=== PATIENT | male | born 1990 | race Caucasian/White ===

== ENCOUNTER 2017-04-04 13:32 | Inpatient (IN) | payer BC, OTHER ==
[~2017-04-04] VITALS: Ht 186.7 cm; Wt 76.2 kg
--- NOTE | 2017-04-04 14:02 | NUR ---
PRE-ADMISSION NOTE RECEIVED PT AT INTAKE, A/OX4, RESPIRATIONS EVEN AND UNLABORED. PT IS FLUSHED, FIDGETY, RESTLESS AND HIGHLY AGITATED AND IRRITABLE. PT APPEARS DYSPHORIC, GUARDED AND WITHDRAWN. TREMORS ARE SEEN. PT DOES NOT HAVE EYE CONTACT WHEN SPEAKING. PT INITIAL VS WERE BP:132/83, HR:101, RR: 18, O2SAT: 95%. PT REPORTS HAVING SENSITIVITY TO LIGHT, NAUSEA, ANXIETY, AND WEAKNESS. PT STATES HE HAS NKDA, HE IS ALLERGIC TO CATS. PT REPORTS A MEDICAL HX OF DEPRESSION, ANXIETY, PTSD, AND INSOMNIA. PT REPORTS NO HX OF SZ. PT STATES HE DOES NOT HAVE ANY HOME MEDS. SUBSTANCE USE HX: 1.ETOH VODKA 3 PINTS (1410 ML) OF VODKA DAILY FOR 1 MONTH. LAST USED THE NIGHT BEFORE ON 04/03/17. FIRST USED WHEN HE WAS 10 Y/O. PT REPORTS BEING SOBER FOR 8 MONTHS BEFORE THIS RELAPSE. PT STATES IT WAS THE LONGEST PERIOD BEING SOBER. PT REPORTS HE HAS BEEN TO [place] TWICE. [facility] JULY 2016, [facility] NOVEMBER 2016.
[2017-04-04] MEDS ORDERED: LOPERAMIDE HCL 2 MG CAPSULE PO PRN ×2 (14:15)
[2017-04-04] MEDS ORDERED: THIAMINE HCL 200 MG/2 ML VIAL IM ONE (14:15)
[2017-04-04] MEDS ORDERED: LORAZEPAM 1 MG TABLET PO PRN ×2 (14:15)
[2017-04-04] MEDS ORDERED: MAG HYDROX/AL HYDROX/SIMETH 30 ML LIQUID UDC PO PRN (14:15)
[2017-04-04] MEDS ORDERED: ONDANSETRON ODT 4 MG TAB.RAPDIS SL PRN (14:15)
[2017-04-04] MEDS ORDERED: IBUPROFEN 400 MG TABLET PO PRN (14:15)
[2017-04-04] MEDS ORDERED: DICYCLOMINE HCL 20 MG TABLET PO PRN (14:15)
[2017-04-04] MEDS ORDERED: LORAZEPAM 2 MG/1 ML VIAL IM PRN (14:15)
[2017-04-04] MEDS ORDERED: ACETAMINOPHEN 325 MG TABLET PO PRN (14:15)
[2017-04-04] MEDS ORDERED: CLONIDINE HCL 0.1 MG TABLET PO PRN (14:15)
[2017-04-04] MEDS ORDERED: MIRALAX 17 GM POWD.PACK PO PRN (14:15)
[2017-04-04] MEDS ORDERED: ONDANSETRON 4 MG/2 ML VIAL IM PRN (14:15)
[2017-04-04] MEDS: LORAZEPAM 1 MG TABLET PO SCH ×3 (14:58→22:00)
[2017-04-04 15:01] LABS: *AMPHETAMINE, URINE NEGATIVE (NEGATIVE); *BARBITURATE, URINE NEGATIVE (NEGATIVE); *CANNABINOID, URINE NEGATIVE (NEGATIVE); *COCCAINE, URINE NEGATIVE (NEGATIVE); *OPIATE, URINE NEGATIVE (NEGATIVE); *PHENCYCLIDINE SCREEN,URINE NEGATIVE (NEGATIVE)
[2017-04-04 15:56] LABS: BASOPHILS % (AUTO) 0.4 % (0.0-2.0); EOSINOPHILS # (AUTO) 0.1 K/uL (0.0-0.7); EOSINOPHILS % (AUTO) 0.8 % (0.0-7.0); HEMATOCRIT 50.3 % (36.7-47.1); HEMOGLOBIN 17.3 g/dL (12.5-16.3); LYMPHOCYTES # (AUTO) 1.1 K/uL (20.0-40.0); LYMPHOCYTES % (AUTO) 15.8 % (20.5-51.5); MEAN CORPUSCULAR HEMOGLOBIN 32.9 uug (23.8-33.4); MEAN CORPUSCULAR HGB CONC 34 g/dL (32.5-36.3); MEAN CORPUSCULAR VOLUME 95.7 fL (73.0-96.2); MONOCYTES # (AUTO) 0.5 K/uL (2.0-10.0); NEUTROPHILS # (AUTO) 5.2 K/uL (1.8-8.9); PLATELET COUNT (AUTO) 214 K/uL (152-348); RED BLOOD CELL COUNT(AUTO) 5.25 MIL/uL (4.06-5.63); WHITE BLOOD COUNT (AUTO) 6.8 K/uL (3.6-10.2)
[2017-04-04 16:00] VITALS: BP 120/78
--- NOTE | 2017-04-04 16:00 | NUR ---
ADMISSION NOTE PT WAS ADMITTED ON THE FLOOR AT 1414 ON 04/04/17. PT IS A/OX4, RESPIRATIONS EVEN AND UNLABORED. PT IS LABILE, FLUSHED, DIAPHORETIC, FIDGETY, RESTLESS AND HIGHLY AGITATED AND IRRITABLE. PT APPEARS DYSPHORIC, GUARDED AND WITHDRAWN. PT HAS REDNESS IN THE EYES. TREMORS ARE SEEN. PT DOES NOT HAVE EYE CONTACT WHEN SPEAKING. PT INITIAL VS WERE BP:132/83, HR:101, RR: 18, O2SAT: 95%. PT REPORTS HAVING SENSITIVITY TO LIGHT, NAUSEA, ANXIETY, DIFFICULTY THINKING AND WEAKNESS. INITIAL CIWA 16. PT STATES HE HAS NKDA, HE IS ALLERGIC TO CATS. PT REPORTS A MEDICAL HX OF DEPRESSION, ANXIETY, PTSD, AND INSOMNIA. PT STATES HE WAS POSITIVE FOR HEP C EXPOSURE BUT IS NOT SURE IF HE IS POSITIVE. PT REPORTS NO HX OF SZ. PT STATES HE DOES NOT HAVE ANY HOME MEDS. BODY CHECK COMPLETED. PT HAS MULTIPLE BRUISES ON BILATERAL KNEES. SCABS ON BILATERAL HANDS. PT REPORTS HE DOES NOT KNOW HOW HE GOT THEM. PT REPORTS FAMILY HX OF ETOH ABUSE. PT STATES HE HAS NO SUPPORT SYSTEM AND IS WORKING ON GAINING IT. PT REPORTS HAVING ABANDONMENT AND ISOLATION ISSUE, VERBAL AND EMOTIONAL ABUSE. PT STATES HE HAS LOST ABOUT 10 LBS THE PAST MONTH DUE TO HIS DRINKING HABIT. PT REPORTS HE HAS BEEN DRINKING DUE TO HIGH STRESS FROM WORK HE RECENTLY QUIT AND THE BREAK UP WITH HIS GIRLFRIEND. PT WANTS TO BE ASKED LATER FOR FLU/PNA VACCINE CONSENT; PT STATES HE DOES NOT FEEL WELL ENOUGH TO THINK ABOUT IT AT THIS TIME. SUBSTANCE USE HX: 1.ETOH VODKA 3 PINTS (1410 ML) OF VODKA DAILY FOR 1 MONTH. LAST USED THE NIGHT BEFORE ON 04/03/17. FIRST USED WHEN HE WAS 10 Y/O. PT REPORTS BEING SOBER FOR 8 MONTHS BEFORE THIS RELAPSE. PT STATES IT WAS THE LONGEST PERIOD BEING SOBER. PT REPORTS HE HAS BEEN TO [place] TWICE. [facility] JULY 2016, [facility] NOVEMBER 2016.
[2017-04-04 16:06] LABS: BILIRUBIN,TOTAL 0.7 mg/dL (0.2-1.0); CREATININE 1.1 mg/dL (0.6-1.3); MAGNESIUM 1.7 mg/dL (1.8-2.4); POTASSIUM 3.6 mmol/L (3.5-5.1); TOTAL PROTEIN, SERUM 7.4 g/dL (6.4-8.2)
[2017-04-04] MEDS ORDERED: MAGNESIUM OXIDE 400 MG TABLET PO ONE (18:00)
--- NOTE | 2017-04-04 18:12 | NUR ---
PRN ATIVAN 2 MG PO PRN GIVEN FOR CIWA 16. PT APPEARS FLUSHED, HIGHLY ANXIOUS, AGITATED AND TREMORS ARE SEEN. WILL MONITOR FOR EFFECTIVENESS.
--- NOTE | 2017-04-04 18:59 | NUR ---
START OF SHIFT NOTE Patient is a 26 old male admitted to [facility] 04/04/17 at 19:42 for Alcohol (Vodka) dependence continue 5 Day Ativan Taper. Patient tolerated well without ASE. Patient reported Allergy to Cat dander. Patient placed on Full Code; Regular Diet; Fall and Seizures Precautions. Past Medical History: Anxiety, Depression, History of Seizures, PTSD, Hepatitis C. Upon endorsement, patient assessed in his room. Patient is alert and oriented x4. Speech is unclear and slurred. Patient is unshaved, and his clothes around the room. CIWA 16. Patient presented with anxiety, agitation, nervousness, tremors, sweating, muscle aches, generalized body pain "5/10", restlessness ,fatigue, and stomach pain. Patient denies nausea, vomiting, and diarrhea. Respirations is unlabored with alcohol smell. Abdomen is soft. Bowel Sounds active in all four quadrants. Skin is warm, and moist to touch. Patient has scabs on Bilateral Upper Extremities, and multiple bruises on Bilateral Low Extremities " unknown reason". Patient denies SI/HI. Patient encouraged to attend activities, and to increasing oral fluids. All safety measures in the place: Call light within reach; bed locked and in the lowest position, padded rails up x 2. Patient endorsed by day shift nurse. SBAR report received. Will continue to monitor closely.
--- NOTE | 2017-04-04 19:12 | NUR ---
REASSESSMENT PT CIWA 14 UPON REASSESSMENT. WILL CONTINUE TO MONITOR.
--- NOTE | 2017-04-04 19:59 | NUR ---
END OF SHIFT PT LAST CIWA 12 AT 1911. PT APPEARS RED AND FLUSHED, ANXIOUS, RESTLESS. TREMORS ARE SEEN. ATIVAN 2 MG PO PRN GIVEN AT 1811. UPON REASSESSMENT CIWA 12; PT STATED, "I STILL FEEL LIKE SHIT." WILL GIVE ALL ENDORSEMENT TO NECK BAND SETTER NURSE. Addendum: 04/04/17 at 2004 by JOYA BLANCHARD RN ENCOURAGED PT TO INCREASE FLUIDS TO PROMOTE HYDRATION. ENCOURAGED PT TO PARTICIPATE IN DIVERSIONAL ACTIVITIES TO ALLEVIATE ANXIETY.
[2017-04-04 20:00] VITALS: BP 137/69
--- NOTE | 2017-04-04 22:00 | NUR ---
Patient refused Ativan 2 mg 2 tab PO scheduled @2200.
[2017-04-05] VITALS: BP 125/72
[2017-04-05 04:00] VITALS: BP 137/78
--- NOTE | 2017-04-05 07:32 | NUR ---
END OF SHIFT NOTE 26 old male patient presented in [facility] for Alcohol (Vodka) dependence, continue 5 Day Ativan Taper which tolerated well without ASE. Patient reported Allergy to Cat dander. He is placed on Full Code; Regular Diet; Fall and Seizures Precautions. During last awake overnight counselor CIWA decreased from 16 @20:00 to CIWA 9 @04:00. Patient presented with anxiety; agitation, nervousness, tremors, body aches, stomach cramps, sweating, and headache. VS at 04:00:T: 97.6; BP: 137/78; HR:81; O2Sat: 98%; RR: 18. Pain Level :"0/10". Skin is warm, and moist to touch. Patient has scabs on Bilateral Upper Extremities, and multiple bruises on Bilateral Low Extremities. Patient denies SI/HI. Patient remains compliant with therapeutic plan, medications, and diet regime. Patient encouraged to increase oral fluid intake as tolerated. Patient encouraged to attend activities. No PRN Medications administrated during my shift. Patient slept 4 hours, intake1,051 ml, voided x1. Patient denies SI/HI at this time. All needs met. Safety measures in the place by hospital policy: Call light within reach, bed in the lowest position and locked, padded rails up x2. Patient endorsed to day shift nurse, report given.
--- NOTE | 2017-04-05 07:50 | NUR ---
START OF SHIFT RECEIVED PT LAYING IN BED, A/OX4, RESPIRATIONS EVEN AND UNLABORED. PT APPEARS FLUSHED, DIAPHORETIC, ANXIOUS, AGITATED. TREMORS ARE SEEN. PT C/O REPORTS HAVING SENSITIVITY TO LIGHT, NAUSEA, ANXIETY, DIFFICULTY THINKING AND WEAKNESS. SIDE RAILS UP X2, BED IS IN LOWEST POSITION. CALL LIGHT WITHIN REACH. WILL CONTINUE TO MONITOR.
[2017-04-05 08:00] VITALS: BP 132/67
[2017-04-05] MEDS ORDERED: TUBERCULIN,PURIF.PROT.DERIV. 5 TU/0.1 ML TEST ID ONE (09:00)
[2017-04-05] MEDS: MULTIVITAMINS,THERAPEUTIC TABLET PO SCH (09:41)
[2017-04-05] MEDS: LORAZEPAM 1 MG TABLET PO SCH ×3 (09:41→21:13)
[2017-04-05] MEDS: THIAMINE HCL 100 MG TABLET PO SCH (09:41)
[2017-04-05] MEDS: FOLIC ACID 1 MG TABLET PO SCH (09:42)
[2017-04-05 12:00] VITALS: BP 154/93
--- NOTE | 2017-04-05 12:32 | NUR ---
PRN CLONIDINE 0.1 MG PO PRN GIVEN FOR BP: 154/93. PT C/O OF BEING HIGHLY ANXIOUS. WILL MONITOR FOR EFFECTIVENESS.
--- NOTE | 2017-04-05 13:32 | NUR ---
REASSESSMENT BP 138/76 UPON REASSESSMENT. PT REPORTS FEELING LESS ANXIOUS THAN PREVIOUSLY. WILL CONTINUE TO MONITOR.
[2017-04-05 16:00] VITALS: BP 144/82
--- NOTE | 2017-04-05 19:35 | NUR ---
START OF SHIFT NOTE Endorsed patient, 26 year old male, assessed in his room. He is resting in the bed. Patient is alert and oriented x4. Patient is sad, with poor eyes contact , and c/o " feelings of worthlessness". Emotional support provided, and patient 's reassuring. Patient denied SI/HI. CIWA 8. Patient presented with anxiety, agitation, nervousness, tremors, sweating, restlessness, fatigue, and stomach pain. VSWNL. Respirations is unlabored and clear. Abdomen is soft. Bowel Sounds active in all four quadrants. Skin is warm, and dry to touch. Healed Scabs on Bilateral Upper Extremities, and multiple bruises on Bilateral Low Extremities noted. Patient denies SI/HI. Encouraged to attend group activities, to increasing oral fluids. Patient is tolerated well with ordered 5 Day Ativan Taper. Patient remains compliant with treatment, medications, and diet regime per day shift nurse report. All safety measures in the place: Call light within reach, bed locked and in the lowest position, padded rails up x 2. Patient endorsed by day shift nurse. SBAR report received. Will continue to monitor closely.
--- NOTE | 2017-04-05 19:35 | NUR ---
END OF SHIFT LAST CIWA 12. PT APPEARS DEPRESSED, HIGHLY ANXIOUS, AGITATED. PT STATED, "I FEEL REALLY DEPRESSED AND I REALLY FEEL LIKE SHIT." ENCOURAGED PT TO PARTICIPATE IN DIVERSIONAL ACTIVITIES TO ALLEVIATE ANXIETY. CLONIDINE PRN GIVEN DURING SHIFT FOR BP 154/93 AND EFFECTIVE. ALL SAFETY MEASURES IN PLACE. WILL GIVE ENDORSEMENT TO TERRITORY DEVELOPMENT MANAGER NURSE.
[2017-04-05 20:00] VITALS: BP 122/71
[2017-04-05] MEDS: diphenhydrAMINE 50 MG CAPSULE PO PRN (21:19)
--- NOTE | 2017-04-05 21:19 | NUR ---
PRN BENADRYL 50 MG 1 CAP PO ADMINISTRATION Patient c/o insomnia. PRN Benadryl 50 mg 1 cap PO administrated with full glass of water as ordered. Patient tolerated well. All needs met. Safety measures on place. Call light within reach, bed in lowest position and locked, padded rails up bilaterally rails up bilaterally. Will continue to monitor closely.
--- NOTE | 2017-04-05 22:19 | NUR ---
RE-ASSESSMENT Patient is sleeping. RR 15. Respirations even and unlabored. PRN Benadryl 50 mg 1 cap PO administrated for insomnia @2118 was effective. All needs met. Safety measures on place. Call light within reach, bed in lowest position and locked, padded rails up bilaterally rails up bilaterally. Will continue to monitor closely.
[2017-04-06] VITALS: BP 118/74
[2017-04-06 04:00] VITALS: BP 125/62
--- NOTE | 2017-04-06 06:36 | NUR ---
END OF SHIFT NOTE Patient presented for Alcohol (Vodka) withdrawal continues 5 Day Ativan Taper. Patient is disheveled with uncombed hair and with poor eye contact. CIWA=8 @20:00, CIWA=6 @0000. Latest CIWA=7 @0400. Patient presented anxious and agitated, c/o body aches, stomach cramps, sweating, and insomnia. PRN Benadryl 50 mg 1 cap PO administrated for insomnia @2118 was effective. Patient slept 10 hours, intake 700 ml, voided x1. All needs met. Safety measures in the place by hospital policy: Call light within reach, bed in the lowest position and locked, padded rails up x2. Patient endorsed to day shift nurse, report given.
--- NOTE | 2017-04-06 07:10 | NUR ---
Start of Shift Notes: Received patient in his room. Seen laying in bed. Appears disheveled, unkempt. Noted with candy wrappers, ehip bags and empty water bottles/juice on the floor. Room is malodorous. Encouraged patient to maintain personal hygiene and to maintain cleanliness and order on his personal space. Patient is a 26 year old male admitted for ETOH withdrawal. PRN Benadryl was given during the night. Last CIWA 7. Slept for 10 hours. Educated patient on his current plan of care and his medication regimen. Encouraged oral fluid intake and encouraged group participation to learn new skills to prevent relapse. Will continue to monitor closely.
[2017-04-06 08:00] VITALS: BP 115/67
[2017-04-06 08:06] LABS: HEPATITIS B SURFACE AG Negative (Negative)
[2017-04-06] MEDS: MULTIVITAMINS,THERAPEUTIC TABLET PO SCH (08:42)
[2017-04-06] MEDS: FOLIC ACID 1 MG TABLET PO SCH (08:42)
[2017-04-06] MEDS: THIAMINE HCL 100 MG TABLET PO SCH (08:42)
[2017-04-06] MEDS: LORAZEPAM 1 MG TABLET PO SCH ×4 (08:42→21:04)
[2017-04-06 12:00] VITALS: BP 135/81
[2017-04-06 16:00] VITALS: BP 131/83
--- NOTE | 2017-04-06 19:00 | NUR ---
End of Shift Notes: Patient continues to be on 5-day Ativan taper as ordered to manage s/s of ETOH withdrawal. Patient is tolerating current taper well. No adverse reactions noted. VS monitored closely. No significant abnormalities noted. Withdrawal symptoms were closely monitored. Initial CIWA 14, patient presented with anxiety, agitation, tremors, facial flushing, and fatigue. Last CIWA 9. Per patient, Ativan has been effective in reducing his withdrawal symptoms. Requires encouragement to attend group and activities due to episodes of self isolation. All needs met and attended. Will continue to monitor closely.
--- NOTE | 2017-04-06 19:00 | NUR ---
START OF SHIFT NOTE: Patient presented for Alcohol (Vodka) withdrawal continues 5 Day Ativan Taper which tolerated well . Patient stated, "Ativan helped me a lot with my anxiety". Upon endorsement patient assessed in his room. Room appears dirty with garbage around the room. Patient noted with uncombed hair and with poor eye contact, expressed his feelings as," My anxiety increased, I have restlessness, and depression because I am worried about my girlfriend ". Latest CIWA=9 @1600. Patient presented anxious and agitated, c/o body aches, stomach cramps, sweating, and insomnia. All needs met. Safety measures in place by hospital policy: Call light within reach, bed in the lowest position and locked, padded rails up x2. Endorsement received from day shift nurse.
[2017-04-06 20:00] VITALS: BP 138/96
[2017-04-06] MEDS: diphenhydrAMINE 50 MG CAPSULE PO PRN (21:05)
[2017-04-06] MEDS ORDERED: LORAZEPAM 1 MG TABLET PO PRN ×2 (21:15)
--- NOTE | 2017-04-06 22:05 | NUR ---
RE-ASSESSMENT Patient is sleeping. RR 17. Respirations even and unlabored. PRN Benadryl 50 mg 1 cap PO administrated for insomnia @2118 was effective. All needs met. Safety measures on place. Call light within reach, bed in lowest position and locked, padded rails up bilaterally rails up bilaterally. Will continue to monitor closely.
[2017-04-07] VITALS: BP 132/86
[2017-04-07 04:00] VITALS: BP 122/66
--- NOTE | 2017-04-07 06:57 | NUR ---
END OF SHIFT NOTE: Patient is a 26 year old male admitted for Alcohol (Vodka) withdraw. He is continues 5 Day Ativan Taper which tolerated well. Patient 's c/o feelings of low self-esteem, increased anxiety, depression, and irritability. Patient denied SI/HI. Emotional support provided, and patient 's reassuring. The patient was educated in safety and hygiene care. The patient was encouraged to independently perform hygiene care. Withdrawal symptoms was closely monitored. CIWA=12 @2000, CIWA=7 @0000. Last CIWA=7 @0400. Patient presented with anxiety, agitation, depression, irritability, fatigue, nervousness, c/o body aches, stomach cramps, sweating, and insomnia. PRN Benadryl 50 mg 1 cap PO administrated for insomnia @2104 was effective. Safe and calm environment with minimized noises was provided. Patient slept 7 hours, intake 2,802 ml, voided x2, stool x1. Patient denies SI/HI at this time. All needs met. Safety measures in the place by hospital policy: Call light within reach, bed in the lowest position and locked, padded rails up x2. Patient endorsed to day shift nurse.
--- NOTE | 2017-04-07 07:45 | NUR ---
START OF SHIFT RECEIVED PT A/OX4, RESPIRATIONS EVEN AND UNLABORED. PT APPEARS ANXIOUS, DEPRESSED, HYPOACTIVE, AGITATED AND WITHDRAWN. ENCOURAGED PT TO VERBALIZED FEELINGS, ENCOURAGED PT TO PARTICIPATE IN GROUPS AND ACTIVITIES TO DIVERT ANXIETY, DEPRESSION AND WORK ON COPING SKILLS. SIDE RAILS UP X2, BED IN LOWEST POSITION. ALL SAFETY MEASURES IN PLACE. WILLCONTINUE TO MONITOR.
[2017-04-07 08:00] VITALS: BP 125/73
[2017-04-07] MEDS: THIAMINE HCL 100 MG TABLET PO SCH (08:51)
[2017-04-07] MEDS: MULTIVITAMINS,THERAPEUTIC TABLET PO SCH (08:51)
[2017-04-07] MEDS: FOLIC ACID 1 MG TABLET PO SCH (08:51)
[2017-04-07] MEDS: LORAZEPAM 1 MG TABLET PO SCH ×3 (08:51→20:39)
--- NOTE | 2017-04-07 10:00 | NUR ---
Therapist prompted client about group times. Client stated he would attend all groups today.
[2017-04-07 12:00] VITALS: BP 118/97
--- NOTE | 2017-04-07 15:00 | NUR ---
PT REFUSED ATIVAN SCHEDULED TAPER DOSE. RISKS AND BENEFITS EXPLAINED AND PT VERBALIZED UNDERSTANDING. PT STATED, "I AM DONE WITH ALL THE W/D SYMPTOMS AND I DONT NEED IT ANYMORE." PT VERBALIZED IT MAKES HIM SEDATED AND HE WANTS TO THINK MORE CLEARLY AND FEEL PRESENT.
[2017-04-07 16:00] VITALS: BP 122/90
--- NOTE | 2017-04-07 19:27 | NUR ---
END OF SHIFT LAST CIWA 8 @1600. PT ATTENDED ALL GROUPS AND PARTICIPATED IN ALL ACTIVITIES TODAY. PT STATES HE IS FEELING RESTLESS AND CANNOT FIND ENOUGH THINGS TO KEEP HIM BUSY. PT APPEARS FLUSHED, ANXIOUS, RESTLESS AND DEPRESSED. ENCOURAGED PT TO SOCIALIZE WITH OTHERS AND VERBALIZE FEELINGS, PARTICIPATE IN DIVERSIONAL ACTIVITIES. PT VERBALIZED UNDERSTANDING. ALL SAFETY MEASURES IN PLACE. WILL GIVE ENDORSEMENT TO CONTINUOUS MINING MACHINE LODE MINER NURSE.
[2017-04-07 20:00] VITALS: BP 132/85
--- NOTE | 2017-04-07 20:00 | NUR ---
START OF SHIFT NOTE RECEIVED REPORT FROM DAY SHIFT NURSE. PATIENT IS A 26 YEAR OLD ADMITTED FOR ETOH WITHDRAWAL. PATIENT IS ON 5 DAY ATIVAN TAPER. PATIENT DID NOT REQUIRE ANY MEDICATION. LAST CIWA 8. RECEIVE PATIENT IN THE ROOM. PATIENT WITH PRESSURED SPEECH , AVOIDANT EYE CONTACT, FLUSHED, FLAT AFFECT AND APATHETIC. PATIENT STATES HE ATTENDED GROUPS. SAFETY MEASURES IN PLACE. CALL LIGHT IN REACH. WILL CONTINUE TO MONITOR
[2017-04-07] MEDS: diphenhydrAMINE 50 MG CAPSULE PO PRN (21:48)
--- NOTE | 2017-04-07 21:48 | NUR ---
PRN BENADRYL ADMINISTRATION PATIENT REQUESTS FOR SLEEP AID. WILL MONITOR FOR EFFECTIVENESS
--- NOTE | 2017-04-07 23:00 | NUR ---
PRN BENADRYL RE-ASSESSMENT PATIENT IN BED WITH EYES CLOSED. RESPIRATION EVEN AND UNLABORED. SAFETY MEASURES IN PLACE. CALL LIGHT IN REACH. WILL CONTINUE TO MONITOR.
--- NOTE | 2017-04-08 | NUR ---
CIWA DEFERRED PATIENT SLEEPING. CIWA DEFERRED. VS REFUSED. RESPIRATION EVEN AND UNLABORED. SAFETY MEASURES IN PLACE. CALL LIGHT IN REACH. WILL CONTINUE TO MONITOR
--- NOTE | 2017-04-08 04:00 | NUR ---
CIWA DEFERRED PATIENT SLEEPING. CIWA DEFERRED. VS REFUSED. RESPIRATION EVEN AND UNLABORED. SAFETY MEASURES IN PLACE. CALL LIGHT IN REACH. WILL CONTINUE TO MONITOR
--- NOTE | 2017-04-08 07:14 | NUR ---
END OF SHIFT NOTE PATIENT SLEPT 6 HOURS. FLUID INTAKE 1,800 ML. VOIDED X 2. NO BM. MONITORED PATIENT THROUGHOUT SHIFT. PATIENT COMPLIANT WITH MEDICATION AND TREATMENT PLAN. PATIENT WAS GIVEN PRN BENADRYL FOR SLEEP. MEDICATION GIVEN AND ORDERED WITH NO ADVERSE REACTION. SAFETY MEASURES IN PLACE. CALL LIGHT IN REACH. WILL CONTINUE TO MONITOR . LAST CIWA 5.
--- NOTE | 2017-04-08 07:35 | NUR ---
Start of Shift Notes: Received patient in his room. Seen laying in bed. Appears disheveled, unkempt. Noted with empty dressing bags and empty water bottles/juice at bedside table. Encouraged patient to maintain personal hygiene and to maintain cleanliness and order on his personal space. Patient is a 26 year old male admitted for ETOH withdrawal. PRN Benadryl was given during the night. Last CIWA 5. Slept for 6 hours. Educated patient on his current plan of care and his medication regimen. Encouraged oral fluid intake and encouraged group participation to learn new skills to prevent relapse. Will continue to monitor closely.
[2017-04-08 08:00] VITALS: BP 122/62
[2017-04-08] MEDS: LORAZEPAM 1 MG TABLET PO SCH ×2 (09:00→20:42)
[2017-04-08] MEDS: THIAMINE HCL 100 MG TABLET PO SCH (09:03)
[2017-04-08] MEDS: MULTIVITAMINS,THERAPEUTIC TABLET PO SCH (09:03)
[2017-04-08] MEDS: FOLIC ACID 1 MG TABLET PO SCH (09:03)
--- NOTE | 2017-04-08 09:10 | NUR ---
Ativan 1 mg PO at 0900 not administered: Patient refused Ativan 1 mg PO at 0900 at this time. CIWA 5, patient states "I don't want it anymore, I am done with withdrawals." Patient education provided regarding risk of seizure and risk involved as well as benefits when meds are not taken. Patient continues to refuse and asked to speak with MD. Respected patient's rights. Will notify MD.
[2017-04-08 12:00] VITALS: BP 128/93
[2017-04-08 16:00] VITALS: BP 132/88
--- NOTE | 2017-04-08 19:08 | NUR ---
End of Shift Notes: Patient is currently on a 5-day Ativan taper as ordered. He is on day 4. Tolerating current taper well. No adverse reactions noted. Patient refused Ativan at [address] Silverman. VS monitored closely. No significant abnormalities noted. Initial CIWA 5, due to anxiety, agitation and sweats. Last CIWA 5. Patient requires encouraged to go to group and socialize with his peers. Affect is flat but remains pleasant. Denies AV hallucination and S/I or H/I. Seen by Dr. Rosas with NNO. All needs met and attended. Will continue to monitor.
--- NOTE | 2017-04-08 19:30 | NUR ---
START OF SHIFT Received 26 year old male patient. Pt is alert and oriented x4. Pt is noted with poor eye contact, monotonous speech, and flat affect. Pt noted to be withdrawn, and has poor insight. He appears anxious with flushed face. Per endorsement, pt refused AM dose of Ativan. He did not receive or request PRN medications. Breathing is even and unlabored, safety measures in place. Will continue to monitor.
[2017-04-08 20:15] VITALS: BP 136/90
[2017-04-08] MEDS: diphenhydrAMINE 50 MG CAPSULE PO PRN (22:02)
--- NOTE | 2017-04-08 22:02 | NUR ---
PRN BENADRYL Pt complains of insomnia. PRN Benadryl administered as ordered. Safety measures in place. Will monitor effectiveness.
--- NOTE | 2017-04-08 23:02 | NUR ---
PRN REASSESSMENT PRN medication not effective. Pt still awake, appears drowsy and reports he is ready to sleep. Safety measures in place. Will monitor.
--- NOTE | 2017-04-09 | NUR ---
VITALS REFUSED, CIWA DEFERRED Pt refused 0000 vitals signs at beginning of shift. Pt reported he has a hard time falling asleep and did not want to be woken up. CIWA deferred, pt lying in bed with eyes closed and is asleep. Breathing even and unlabored. Safety measures in place. Will monitor.
--- NOTE | 2017-04-09 04:12 | NUR ---
VITALS REFUSED, CIWA DEFERRED Pt refused 0400 vitals signs at beginning of shift. CIWA deferred, pt lying in bed with eyes closed and is asleep. Breathing even and unlabored. Safety measures in place. Will monitor.
--- NOTE | 2017-04-09 07:00 | NUR ---
END OF SHIFT Pt is a 26 year old male patient. Pt remains alert and oriented x4. Pt was noted to be withdrawn and guarded during the shift. He stated he was refusing his Ativan taper in order to leave the facility early. Pt was compliant with medications during shift. He received PRN Benadryl for insomnia. He refused both 12AM and 4 AM vitals signs. He slept a total of 5 hrs, Intake: 755mL, Void: x2, BM:x1. Breathing is even and unlabored, safety measures in place. Will endorse to AM shift.
--- NOTE | 2017-04-09 07:10 | NUR ---
Start of Shift Notes: Received patient in his room. Seen laying in bed. Appears disheveled, unkempt. Noted with empty water bottles/juice at bedside table. Encouraged patient to maintain personal hygiene and to maintain cleanliness and order on his personal space. Patient is a 26 year old male admitted for ETOH withdrawal. PRN Benadryl was given during the night. Last CIWA 6. Slept for 5 hours. Educated patient on his current plan of care and his medication regimen. Encouraged oral fluid intake and encouraged group participation to learn new skills to prevent relapse. Will continue to monitor closely.
[2017-04-09 08:00] VITALS: BP 124/70
[2017-04-09] MEDS ORDERED: LORAZEPAM 1 MG TABLET PO SCH (09:00)
[2017-04-09] MEDS: FOLIC ACID 1 MG TABLET PO SCH (09:03)
[2017-04-09] MEDS: MULTIVITAMINS,THERAPEUTIC TABLET PO SCH (09:03)
[2017-04-09] MEDS: THIAMINE HCL 100 MG TABLET PO SCH (09:03)
[2017-04-09 12:00] VITALS: BP 133/82
--- NOTE | 2017-04-09 14:17 | NUR ---
Therapist prompted client to come to group
[2017-04-09 16:00] VITALS: BP 133/83
--- NOTE | 2017-04-09 19:02 | NUR ---
End of Shift Notes: Patient completed his 5-day Ativan taper and will be discharging tomorrow. No adverse reactions noted. VS monitored closely. No significant abnormalities noted. Initial CIWA 7, due to anxiety, agitation and sweats. Last CIWA 5. Patient requires encouraged to go to group and socialize with his peers. Affect is flat but remains pleasant. Denies AV hallucination and S/I or H/I. Seen by Dr. Rosas with NNO. All needs met and attended. Will continue to monitor.
--- NOTE | 2017-04-09 19:30 | NUR ---
START OF SHIFT Received 26 year old male patient. Per endorsement, pt did not receive or request PRN medications. He is scheduled to be DC tomorrow to [facility]. Pt noted to be anxious, but withdrawn. Pt is alert and oriented x4, breathing is even and unlabored. Safety measures in place. Will continue to monitor.
[2017-04-09 20:00] VITALS: BP 123/74
[2017-04-09] MEDS ORDERED: CLON0.1T14 PO (21:32)
[2017-04-09] MEDS ORDERED: DIPH50CA37 PO (21:32)
[2017-04-09 23:03] VITALS: BP 125/77
[2017-04-09] MEDS: diphenhydrAMINE 50 MG CAPSULE PO PRN (23:03)
--- NOTE | 2017-04-09 23:03 | NUR ---
PRN BENADRYL Pt complains of inability to sleep. PRN Benadryl administered as ordered. Safety measures in place. Will continue to monitor effectiveness.
--- NOTE | 2017-04-10 00:03 | NUR ---
PRN REASSESSMENT Pt lying in bed with eyes closed noted to be asleep. Breathing is even and unlabored. Safety measures in place. Will continue to monitor.
--- NOTE | 2017-04-10 04:05 | NUR ---
VITALS REFUSED, CIWA DEFERRED Pt refused 0400 vitals signs at beginning of shift. CIWA deferred, pt lying in bed with eyes closed and is asleep. Breathing even and unlabored. Safety measures in place. Will continue to monitor.
--- NOTE | 2017-04-10 07:14 | NUR ---
END OF SHIFT Pt is a 26 year old male patient. Pt remains alert and oriented x4. Pt was noted with anxiety, flushed face and insomnia during shift. He received PRN Benadryl. He is scheduled to be DC today to [facility]. He slept a total of 5 hrs, Intake: 1091mL, Void: x4, BM:0, CIWA:5. Breathing is even and unlabored. Safety measures in place. Endorsed to AM shift.
--- NOTE | 2017-04-10 07:30 | NUR ---
START OF SHIFT Pt is a 26 yr old male, AA&Ox4. Pt was admitted on 04/04/17 for ETOH withdrawal and has completed a 5 day Ativan taper as ordered. Medication was yelena well. Received report from evening or night nurse supervisor nurse. Pt received Benadryl PRN for sleep. Pt slept for 5 hrs. Last CIWA score was 5. Pt is to be discharged today to [facility]. Pt is currently in bed sleeping with respirations even and unlabored. Skin is intact, warm and dry to touch. Safety precautions observed. Call light is within reach. Will continue to monitor.
[2017-04-10 08:00] VITALS: BP 112/55
[2017-04-10] MEDS: MULTIVITAMINS,THERAPEUTIC TABLET PO SCH (08:42)
[2017-04-10] MEDS: FOLIC ACID 1 MG TABLET PO SCH (08:42)
[2017-04-10] MEDS: THIAMINE HCL 100 MG TABLET PO SCH (08:42)
--- NOTE | 2017-04-10 09:50 | NUR ---
DISCHARGE NOTE Pt is a 26 yr old male admitted on 04/04/17 for ETOH Withdrawal and completed a 5 day Ativan taper as ordered. Pt was cooperative with medication regimen and plan of care. Pt stated of feeling anxious prior to discharged due to new location. Skin is intact,warm and moist to touch.Pt denies any SI/HI. Pt was educated on discharged summary and prescriptions. Pt was able to verbalize understanding. Pt left the unit at 0945 in stable condition. Pt was discharged to [facility] with all belonging and valuables. Pt denies any home medication.
== END 2017-04-10 09:45 | disposition home or self-care (01) | DRG 895 ==
LOC: SRC 13:32
PROVIDERS: ADMIT Internal Medicine; ATTEND Internal Medicine
PROC: HZ2ZZZZ Detoxification Services for Substance Abuse Treatment (ICD-10-PCS; principal; 2017-04-04)
PROC: HZ31ZZZ Individual Counseling for Substance Abuse Treatment, Behavioral (ICD-10-PCS; 2017-04-07)
PROC: HZ41ZZZ Group Counseling for Substance Abuse Treatment, Behavioral (ICD-10-PCS; 2017-04-08)
DX: F10.232 Alcohol dependence with withdrawal with perceptual disturbance (principal); I15.9 Secondary hypertension, unspecified; E83.42 Hypomagnesemia; K70.10 Alcoholic hepatitis without ascites; F17.210 Nicotine dependence, cigarettes, uncomplicated; F41.9 Anxiety disorder, unspecified; G47.00 Insomnia, unspecified; Z81.1 Family history of alcohol abuse and dependence; Y90.9 Presence of alcohol in blood, level not specified; Z59.1 Inadequate housing; Z91.89 Other specified personal risk factors, not elsewhere classified; F32.9 Major depressive disorder, single episode, unspecified; R73.9 Hyperglycemia, unspecified
CPT/HCPCS: 36415; 70030-TC; 80307; 83735; 85025; 86592; 86705; 86803; 87340; 87806; G0480; J3411; Q0163